=== PATIENT | male | born 2000 | race Caucasian/White ===

== ENCOUNTER 2022-08-06 08:14 | Emergency (ER) | payer OTHER, MEDICAID, SELFPAY ==
[2022-08-06 08:23] VITALS: BP 138/70; PULSE 95; RESP 16; TEMP 36.9; O2SAT 100
--- NOTE | 2022-08-06 08:49 | ED.GENADULT ---
HPI - General Adult General Chief complaint: Dental/Oral Stated complaint: Toothache Source: patient Mode of arrival: ambulatory Limitations: no limitations History of Present Illness HPI narrative: Patient presents for evaluation of right lower dental pain. Symptom onset approximately 3 days ago. Pain is constant but has been worsening since time of symptom onset. He currently rates his pain 2/10 severity. He has been taking Tylenol and ibuprofen for symptoms. No fever, chills, trismus, problems handling secretions. Related Data Allergies Allergy/AdvReac Type Severity Reaction Status Date / Time No Known Allergies Allergy Verified 08/06/22 08:43 Review of Systems Review of Systems: CONSTITUTIONAL: Denies fever, chills, or sweats. EYES: Denies visual changes, redness, or discharge. ENT: Reports right lower dental pain. Denies rhinorrhea, congestion, sore throat, or otalgia. CARDIOVASCULAR: Denies chest pain, palpitations, or edema. RESPIRATORY: Denies cough or dyspnea. GASTROINTESTINAL: Denies abdominal pain, nausea, vomiting, or diarrhea. GENITOURINARY: Denies dysuria or hematuria. SKIN: Denies rash or itching. MUSCULOSKELETAL: Denies back pain, joint pain, or myalgia. NEUROLOGIC: Denies headache, numbness, dizziness, or weakness. PSYCHIATRIC: Denies anxiety or depression. FOR[facility]LY [facility] Past Medical History Medical History Tooth fracture Surgical History Surgical History No pertinent past surgical history Family History Family History Father Family history non-contributory Social History Social History Smoking status: Current every day smoker Tobacco type: e-cigarettes/vaping Living arrangements: with family Gender identity (if verbalized by the patient): Male Exam Narrative: GENERAL: Well-appearing, well-nourished, and in no acute distress. HEAD: Normocephalic, atraumatic. EYES: PERRLA and EOMI. ENT: Tooth number 31 is fractured and eroded down to the gumline. No visible or palpable abscess. Nares clear, no rhinorrhea or epistaxis. Mucous membranes moist. Oropharynx without tonsillar hypertrophy exudate or other lesions. Bilateral TMs pearly samuel nonbulging NECK: Supple. No adenopathy or masses. No carotid bruits or JVD CHEST: Clear to auscultation. No respiratory distress. No wheezes rales or rhonchi HEART: Regular rate and rhythm. No murmur heard. Normal peripheral pulses. ABDOMEN: Soft, nontender, nondistended, normal active bowel sounds. EXTREMITIES: Normal range of motion. No edema. SKIN: Warm, dry, no rash. NEURO: No focal deficits. Alert and oriented x3. PSYCH: Normal mood and affect. Course Course Emergency Course: This is a 21-year-old male who presented for evaluation of right lower dental pain. He has a dental fracture in the affected area. Will discharge with penicillin and tramadol. Follow-up with dentist. Go to the ER for worsening symptoms. Patient in agreement with plan of care. Level of Care: Express Care Visit Vital Signs Vital signs: Vital Signs Temperature 36.9 C 08/06/22 08:23 Pulse Rate 95 08/06/22 08:23 Respiratory Rate 16 08/06/22 08:23 Blood Pressure 138/70 08/06/22 08:23 Pulse Oximetry 100 08/06/22 08:23 Oxygen Delivery Room Air 08/06/22 08:23 Temperature 36.9 C 08/06/22 08:23 Pulse Rate 95 08/06/22 08:23 Respiratory Rate 16 08/06/22 08:23 Blood Pressure 138/70 08/06/22 08:23 Pulse Oximetry 100 08/06/22 08:23 Oxygen Delivery Room Air 08/06/22 08:23 Medical Decision Making Vital Signs Vital Signs: Vital Signs Temperature 36.9 C 08/06/22 08:23 Pulse Rate 95 08/06/22 08:23 Respiratory Rate 16 08/06/22 08:23 Blood Pressure 138/70 08/06/22
== END 2022-08-06 08:50 | disposition home or self-care (01) ==
PROVIDERS: Emergency Provider Nurse Practitioner
DX: S02.5XXA Fracture of tooth (traumatic), initial encounter for closed fracture (principal); X58.XXXA Exposure to other specified factors, initial encounter; F17.290 Nicotine dependence, other tobacco product, uncomplicated
CPT/HCPCS: 99213; G0463

== ENCOUNTER 2025-01-18 16:15 | Emergency (ER) | payer BC, SELFPAY ==
[2025-01-18 16:24] VITALS: BP 114/86; PULSE 81; RESP 20; TEMP 37.1; O2SAT 100
--- NOTE | 2025-01-18 16:52 | ED_ITS ---
HPI - Extremity Injury (Upper) General Chief Complaint: Extremity Injury, Upper Stated Complaint: Laceration to Right Thumb Time Seen by Provider: 01/18/25 16:40 Source: patient, RN notes reviewed and old records reviewed Mode of arrival: ambulatory Limitations: no limitations History of Present Illness HPI narrative: 24 year old male who presents to [facility] care with complaints of laceration to the right lateral thumb which occurred on when he was carrying a broken aquarium and glass cut him when he went to sit down. Patient reports that he went to [facility] and they took x-rays and cleaned it and sent him home with Bactroban which he couldn't afford, did no form of closure to wound.Patient reports that he has been cleansing with wound cleanser and applying KELLY ointment and covering with band-aid Patient presents today with continued pain to his right lateral thumb with 2.5cm laceration noted to lateral aspect not approximated with center tissue of wound whitish looking. Patient reports that he thinks wound has odor. Patient reports that his tetanus is NOT up to date. Patient is on doxycycline at this time for unrelated condition.Patient is right hand dominant. MD complaint: injury to: right and finger (thumb) Onset (ago): day(s) (laceration occurred on 01/15/25) Other injuries: none Handedness: right Place: home Severity: moderate Severity scale (1-10): 6 Exacerbating factors: movement of extremity Treatments prior to arrival: bandage and other (cleansing of wound.) Related Data Home Medications ?Medication ?Instructions ?Recorded ?Confirmed ?Last Taken ?Type doxycycline monohydrate 100 mg mg 01/18/25 Unknown Hi story capsule Allergies Allergy/AdvReac Type Severity Reaction Status Date / Time No Known Allergies Allergy Verified 01/18/25 17:01 Review of Systems Review of Systems: CONSTITUTIONAL: Denies fever, chills, or sweats. EYES: Denies visual changes, redness, or discharge. ENT: Denies rhinorrhea, congestion, sore throat, or otalgia. CARDIOVASCULAR: Denies chest pain, palpitations, or edema. RESPIRATORY: Denies cough or dyspnea. GASTROINTESTINAL: Denies abdominal pain, nausea, vomiting, or diarrhea. GENITOURINARY: Denies dysuria or hematuria. SKIN: Laceration to the lateral aspect of his right thumb which occurred on 01/15/2025 when he was cut by glass on aquarium. was seen at [facility] and x-rays done and not sutured at that time with wound 2.5cm in length with edges not approximate and center of wound tissue white in appearance. Patient reports that he thinks wound has odor no drainage noted.He states that he has been cleansing with wound cleanser and applying KELLY and ban-aide. MUSCULOSKELETAL: Denies back pain, joint pain, or myalgia. NEUROLOGIC: Denies headache, numbness, or weakness. PSYCHIATRIC: Denies anxiety or depression. All systems reviewed & are unremarkable except as noted in HPI and below PMFSH Past Medical History Medical History (Updated 01/20/25 @ 18:12 by Farida Navarro APRN) History of dental problems Tooth fracture Surgical History Surgical History (Updated 01/20/25 @ 17:52 by Farida Navarro APRN) History of tonsillectomy Family History Family History Father Family history non-contributory Social History Social History Smoking status: Current every day smoker Tobacco type: e-cigarettes/vaping Living arrangements: with family Gender identity (if verbalized by the patient): Male Comments At time of signature, agree with nursing past medical, surgical, social and family history. There is no relevant family history pertinent to the presenting complaint Exam Narrative: GENERAL: Well-appearing, well-nourished, and in some acute distress. HEAD: Normocephalic, atraumatic. EYES: PERRLA and EOMI. ENT: Nares clear, no rhinorrhea or epistaxis. Mucous membranes moist.TM's normal throat pink with no tonsils present NECK: Supple.no lymphadenopathy CHEST: Clear to auscultation. No respiratory distress.SAO2 100% on room air HEART: Regular rate and rhythm. No murmur heard. Normal peripheral pulses. ABDOMEN: Soft, nontender, nondistended, normal active bowel sounds. EXTREMITIES: Normal range of motion. No edema. SKIN: Warm, dry, no rash. 2,5cm laceration to the lateral aspect of right thumb with no closure done when seen on 01/15/2025 at [facility], not approximated with inner wound tissue whitish in color no drainage noted patient reports pain to wound and states he thinks it has odor.Patient has no injury to nail. NEURO: No focal deficits. Alert and oriented x3. Course Course Emergency Course: Patient is aware of diagnosis, understands and agrees to treatment plan.? Anti cipatory guidance given.? Patient agrees to follow-up as directed and is aware of reasons to seek care at the emergency department. Portions of this record may have been created with voice recognition software Level of Care: Express Care Visit Vital Signs Vital signs: Vital Signs Temperature 37.1 C 01/18/25 16:24 Pulse Rate 81 01/18/25 16:24 Respiratory Rate 20 01/18/25 16:24 Blood Pressure 114/86 01/18/25 16:24 Pulse Oximetry 100 01/18/25 16:24 Oxygen Delivery Room Air 01/18/25 16:24 Temperature 37.1 C 01/18/25 16:24 Pulse Rate 81 01/18/25 16:24 Respiratory Rate 20 01/18/25 16:24 Blood Pressure 114/86 01/18/25 16:24 Pulse Oximetry 100 01/18/25 16:24 Oxygen Delivery Room Air 01/18/25 16:24 reviewed Procedures Laceration thumb: Date: 01/18/25 Time: 17:00 Site: hand (thumb) Side (If applicable): right Size (cm): 2.5 Description: irregular Depth: simple, single layer Local Anesthetic: none ====== Skin Level ====== Skin layer closed with: steri strips (applied over wound edges laceration occurred on ) ====== Subcutaneous Layer ====== ====== Muscle Layer ====== ====== Tendon Layer ====== Dressing: wound cleansed and irrigated with normal saline patted dry and steri strip applied over edges of wound to approximate edges, Telfa of large band-aid over wound Coban to secure and tube gauze to thumb. MDM - Extremity Injury (Upper) MDM Narrative Medical decision making narrative: Patient received tetanus update while in clinic with no reaction noted. Differential Diagnosis Differential diagnosis: Likely other (subsequent laceration repair evaluation of wound, wound infection.) Medical Records Attestation: I reviewed the patient's medical records. Critical Care Time Critical Care Time Critical Care Time: No Discharge Plan Discharge Clinical Impression: Laceration of thumb Qualifiers: Encounter type: subsequent encounter Damage to nail status: without damage Foreign body presence: without foreign body Laterality: right Qualified Code(s): S61.011D - Laceration without foreign body of right thumb without damage to nail, subsequent encounter Patient Disposition: Home Condition: Stable Instructions: Antibiotic Form, Acute Wounds (ED) Additional Instructions: Keep the area clean and dry No continuous water contact like dishes or swimming You may bathe and wash you hair caution with hair products or lotions keep present dressing on for 48 hours with tube gauze and Telfa dressing of choice watch for infection--redness, swelling, drainage let steri strips fall off on their own. recheck with PCP if further concerns or problems antibiotic as prescribed take all doses splint to thumb for some protection If your symptoms persist, change or worsen significantly before you can contact your personal physician then please, without delay, go to the emergency department for further evaluation. Follow-up with PCP in 7-10 days or sooner if needed monitor for any fevers Patient Language: Slovak Prescriptions: New cephalexin 500 mg capsule 500 mg PO Q8H Qty: 30 0RF Rx Instructions: take all doses of oral medication as ordered ibuprofen 600 mg tablet 600 mg PO QID PRN (Reason: fever or pain) Qty: 30 0RF No Action doxycycline monohydrate 100 mg capsule Follow-up/Referrals: PHYSICIAN,APPLICATION ARCHITECT MANAGER [Primary Care Provider, Internal Medicine] Stand Alone Forms: Work/School Release IP Time of Disposition: 17:20 Quality Sorin Coma Scale Eyes: Open Verbal: Oriented and Alert Motor: Follows Commands Dennis Coma Total Score: 15
[2025-01-18] MEDS: TETANUS,DIPHTHERIA,AC PERTUSSIS ADULT (0.5 ML) BOOSTRIX IM (17:43)
== END 2025-01-18 17:58 | disposition home or self-care (01) ==
PROVIDERS: Emergency Provider Registered Nurse
DX: S61.011D Laceration without foreign body of right thumb without damage to nail, subsequent encounter (principal); W25.XXXD Contact with sharp glass, subsequent encounter; Z23 Encounter for immunization; F17.290 Nicotine dependence, other tobacco product, uncomplicated
CPT/HCPCS: 90471; 90715; 99213; G0463